=== PATIENT | male | born 1965 | race Caucasian/White ===

== ENCOUNTER 2022-07-09 07:46 | Outpatient (CLI) | payer BC, SELFPAY ==
[2022-07-09 08:40] LABS: Prostate Specific AG Urology 5.71 ng/mL (0-4)
== END 2022-07-09 07:47 | disposition home or self-care (01) ==
LOC: LAB 07:49
PROVIDERS: PCP Physician Assistant; Visit Provider Urology
DX: R97.20 Elevated prostate specific antigen [PSA] (principal)
CPT/HCPCS: 36415; 81003; 84153

== ENCOUNTER 2023-01-06 09:21 | Outpatient (CLI) | payer BC, SELFPAY | END 2023-01-06 09:22 | disposition home or self-care (01) | LOC: LAB 09:27 | PROVIDERS: PCP Physician Assistant; Visit Provider Urology | DX: R97.20 Elevated prostate specific antigen [PSA] (principal) | CPT/HCPCS: 36415; 84153 ==

== ENCOUNTER → 2023-01-15 09:10 | Outpatient (BNVA) | payer BC, SELFPAY | PROVIDERS: PCP Physician Assistant; Visit Provider Urology | DX: N40.1 Benign prostatic hyperplasia with lower urinary tract symptoms (principal) | CPT/HCPCS: 81003 ==